=== PATIENT | male | born 2000 | race Caucasian/White ===

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

== ENCOUNTER 2019-01-23 15:07 | Emergency (ER) | payer OTHER ==
--- NOTE | 2019-01-23 16:03 | ED ---
Abdominal Pain/Male - HPI Summary HPI Summary: This patient is a 18 year old M presenting to ED with a chief complaint of intermittent LUQ pain worsening since a few days ago. The patient has had dull pain for the past several months, but it became severe and sharp a few days ago. The pain radiates into the back. Patient ate today at noon. He has previously had spleen issues. He had a benign splenic cyst drained x2 and then removed 4-5 years ago. The patient rates the pain 8/10 in severity. Symptoms aggravated by nothing. Symptoms alleviated by nothing. Patient reports nausea, blood mixed (red streaks) in stool today. Patient denies fever. PMHx of GERD, splenic cyst. PSHx of cyst spleen drainage and removal. FHx of DM, cardiac disease, HTN. Patient occasionally drinks alcohol, does not use substances or tobacco. - History of Current Complaint Chief Complaint: EDAbdPain Stated Complaint: SPLEEN PAIN PER PT Time Seen by Provider: 01/23/19 15:56 Hx Obtained From: Patient Onset/Duration: Gradual Onset - Worsening over the past few days, Lasting Weeks , Still Present, Worse Since Timing: Intermittent Severity Initially: Severe Severity Currently: Severe Pain Intensity: 8 Pain Scale Used: 0-10 Numeric Location: Discrete At: LUQ Radiates: Yes Radiates to: Back Aggravating Factor(s): Nothing Alleviating Factor(s): Nothing Associated Signs And Symptoms: Positive: Nausea. Negative: Fever - Allergies/Home Medications Allergies/Adverse Reactions: Allergies Allergy/AdvReac Type Severity Reaction Status Date / Time bees Allergy Intermediate swelling Uncoded 01/23/19 15:12 locally SEASONAL ENVIRONMENTAL Allergy Intermediate NASAL Uncoded 01/23/19 15:12 CONGESTION, EYES RED PMH/Surg Hx/FS Hx/Imm Hx Previously Healthy: No Endocrine/Hematology History: Denies: Hx Anticoagulant Therapy, Hx Diabetes, Hx Thyroid Disease Cardiovascular History: Denies: Hx Congestive Heart Failure, Hx Deep Vein Thrombosis, Hx Hypertension , Hx Myocardial Infarction, Hx Pacemaker/ICD, Other Cardiovascular Problems/ Disorders Respiratory History: Denies: Hx Asthma, Hx Chronic Obstructive Pulmonary Disease (COPD), Hx Lung Cancer, Other Respiratory Problems/Disorders GI History: Reports: Hx Gastroesophageal Reflux Disease - TUMS, Other GI Disorders - Hx of splenic cyst removed in 09/2016 Denies: Hx Gall Bladder Disease, Hx Gastrointestinal Bleed, Hx Ulcer, Hx Urosepsis History: Denies: Hx Kidney Stones, Hx Renal Disease Sensory History: Reports: Hx Contacts or Glasses - READING Denies: Hx Hearing Aid Opthamlomology History: Reports: Hx Contacts or Glasses - READING Neurological History: Denies: Hx Dementia, Hx Headaches, Hx Migraine, Hx Seizures, Hx Transient Ischemic Attacks (TIA), Other Neuro Impairments/Disorders Psychiatric History: Reports: Hx Anxiety - WHEN FEELS CONFINED Denies: Hx Depression, Hx Panic Disorder, Hx Schizophrenia, Hx Bipolar Disorder - Surgical History Surgery Procedure, Year, and Place: cyst drained in spleen 04/2016, [facility] [place]. cyst removed, 08/26 Hx Anesthesia Reactions: No Infectious Disease History: No Infectious Disease History: Denies: Hx Clostridium Difficile, Hx Hepatitis, Hx Human Immunodeficiency Virus (HIV), Hx of Known/Suspected MRSA, Hx Shingles, Hx Tuberculosis, Hx Known/ Suspected VRE, Hx Known/Suspected VRSA, History Other Infectious Disease, Traveled Outside the [place] in Last 30 Days - Family History Known Family History: Positive: Cardiac Disease, Hypertension, Diabetes Negative: Blood Disorder - Social History Alcohol Use: Occasionally Hx Substance Use: No Substance Use Type: Reports: None Hx Tobacco Use: No Smoking Status (MU): Never Smoked Tobacco Have You Smoked in the Last Year: No Review of Systems Negative: Fever Gastrointestinal: Other - Blood in stool (red streaks) Positive: Abdominal Pain - LUQ, Nausea All Other Systems Reviewed And Are Negative: Yes Physical Exam - Summary Physical Exam Summary: Appearance: The patient is well-nourished in no acute distress and in no acute pain. Skin: The skin is warm and dry and skin color reflects adequate perfusion. HEENT: The head is normocephalic and atraumatic. The pupils are equal and reactive. The conjunctivae are clear and without drainage. Nares are patent and without drainage. Mouth reveals moist mucous membranes and the throat is without erythema and exudate. The external ears are intact. The ear canals are patent and without drainage. The tympanic membranes are intact. Neck: The neck is supple with full range of motion and non-tender. There are no carotid bruits. There is no neck vein distension. Respiratory: Chest is non-tender. Lungs are clear to auscultation and breath sounds are symmetrical and equal. Cardiovascular: Heart is regular rate and rhythm. There is no murmur or rub auscultated. There is no peripheral edema and pulses are symmetrical and equal. Abdomen: LUQ tenderness Musculoskeletal: Lumbar tenderness Neurological: Patient is alert and oriented to person, place and time. The patient has symmetrical motor strength in all four extremities. Cranial nerves are grossly intact. Deep tendon reflexes are symmetrical and equal in all four extremities. Psychiatric: The patient has an appropriate affect and does not exhibit any anxiety or depression. Triage Information Reviewed: Yes Vital Signs On Initial Exam: Initial Vitals Temp Pulse Resp BP Pulse Ox 98.5 F 83 18 140/80 97 01/23/19 15:10 01/23/19 15:10 01/23/19 15:10 01/23/19 15:10 01/23/19 15:10 Vital Signs Reviewed: Yes Diagnostics - Vital Signs Vital Signs Temp Pulse Resp BP Pulse Ox 01/23/19 15:10 98.5 F 83 18 140/80 97 - Laboratory Result Diagrams: 01/23/19 16:35 01/23/19 16:35 Lab Statement: Any lab studies that have been ordered have been reviewed, and results considered in the medical decision making process. - Ultrasound Spleen Ultrasound Interpretation Completed By: Radiologist Summary of Ultrasound Findings: THE SPLEEN IS MILDLY ENLARGED. THERE HAS BEEN INTERVAL DEVELOPMENT OF AN AREA OF CALCIFICATION IN THE SPLEEN WHICH MAY PRESENT POSTSURGICAL DYSTROPHIC CALCIFICATION, BUT IS NEW WHEN COMPARED TO DECEMBER 05, 2017. RECOMMEND CONSIDERATION OF FURTHER EVALUATION WITH CONTRAST- ENHANCED CT IN THE NONACUTE SETTING. Dr. Quiles has reviewed this radiology report. Re-Evaluation - Re-Evaluation First Eval Re-Evaluation Time: 18:18 Comment: Discussed results with patient. Patient will be discharged home with dx of abdominal pain. Patient understands and agrees with this plan. Abdominal Pain Male Course/Dx - Course Course Of Treatment: Mr. Dennis presented because she's had the gradual onset of left upper quadrant pain over the last couple of weeks reminiscent of when he had splenic cysts. He was treated with surgery for the cysts. He was tender in the left upper quadrant. He was nontoxic in appearance with stable vitals. His lab work was unremarkable. Ultrasound of his spleen shows that he' s had some calcification in the area of the previous surgery. I'm not sure if this is the source of his pain. The radiologist recommended a non-urgent CT scan and I recommended he follow-up with his PCP to arrange that. I gave him a short course of tramadol for the pain and it appears is nothing immediately dangerous is occurring at this time. - Diagnoses Provider Diagnoses: Abdominal pain Discharge - Sign-Out/Discharge Documenting (check all that apply): Patient Departure - Discharge Patient Received Moderate/Deep Sedation with Procedure: No - Discharge Plan Condition: Stable Disposition: HOME Prescriptions: traMADol TAB* [Ultram*] 50 mg PO Q6HR PRN #20 tab MDD 4 PRN Reason: Pain Patient Education Materials: Abdominal Pain (ED) Referrals: Ezequiel Aden DO [Primary Care Provider] - 3 Days Additional Instructions: Follow up with your primary care provider in 2-3 days. RETURN TO THE ER FOR WORSENING OR CHANGING SYMPTOMS. - Billing Disposition and Condition Condition: STABLE Disposition: Home - Attestation Statements Document Initiated by Garfield: Yes Documenting Scribe: Dre Knight Provider For Whom Garfield is Documenting (Include Credential): Lucio Quiles MD Scribe Attestation: IDre, scribed for Lucio Quiles MD on 01/23/19 at 2042. Scribe Documentation Reviewed: Yes Provider Attestation: The documentation as recorded by the Dre mayen accurately reflects the service I personally performed and the decisions made by me, Lucio Quiles MD Status of Scribe Document: Viewed
[2019-01-23 16:45] LABS: ABS Eosinophils 0.4 10^3/ul (0-0.6); ABS Lymphocytes 2.7 10^3/ul (1.0-4.8); ABS Monocytes 0.6 10^3/ul (0-0.8); ABS Neutrophils 3.6 10^3/ul (1.5-7.7); Hematocrit 42 % (42-52); Hemoglobin 14.8 g/dL (14.0-18.0); Lymphocyte % 36.6 %; Mean Corpuscular HGB Conc 35 g/dL (31-36); Mean Corpuscular Hemoglobin 30 pg (27-31); Mean Corpuscular Volume 85 fL (80-94); Mean Platelet Volume 7.5 fL (7.4-10.4); Nucleated Red Blood Cells % 0.1; Platelet Count 230 10^3/uL (150-450); Red Blood Count 4.93 10^6 /uL (4.18-5.48); Red Cell Distribution Width 13 % (10-15); White Blood Count 7.4 10^3/uL (3.5-10.8)
[2019-01-23 16:52] LABS: INR 1.03 (0.82-1.09)
[2019-01-23 17:04] LABS: ALT 18 U/L (7-52); Albumin 4.7 g/dL (3.2-5.2); Alkaline Phosphatase 60 U/L (34-104); BUN/Creatinine Ratio 16.3 (8-20); Blood Urea Nitrogen 14 mg/dL (6-24); C Reactive Protein < 1.00 mg/L (<8.01); CO2 Carbon Dioxide 29 mmol/L (22-32); Calcium 9.9 mg/dL (8.6-10.3); Chloride 105 mmol/L (101-111); EGFR African American 138.6 (>60); EGFR Non-African American 114.6 (>60); Globulin 2.4 g/dL (2-4); Glucose 115 mg/dL (70-100); Sodium 139 mmol/L (135-145); Total Protein 7.1 g/dL (6.4-8.9)
[2019-01-23 17:26] LABS: AST 17 U/L (13-39); Anion Gap 5 mmol/L (2-11); Potassium 4.3 mmol/L (3.5-5.0)
[2019-01-23 18:22] LABS: Urine Appearance Cloudy; Urine Bilirubin Negative (Negative); Urine Blood Negative (Negative); Urine Color Yellow; Urine Glucose Negative (Negative); Urine Ketones Negative (Negative); Urine Nitrite Negative (Negative); Urine Protein Negative (Negative); Urine Specific Gravity 1.013 (1.010-1.030); Urine Urobilinogen Negative (Negative)
[2019-01-23 18:43] VITALS: BP 133/71
== END 2019-01-23 18:43 | disposition home or self-care (01) ==
LOC: ED 15:07
DX: R10.9 Unspecified abdominal pain (principal)
CPT/HCPCS: 36415; 76705; 80053; 81003; 83605; 83690; 85025; 85610; 86140; 99282

== ENCOUNTER 2019-02-20 16:19 | Emergency (ER) | payer OTHER ==
[2019-02-20 16:46] LABS: ABS Eosinophils 0.4 10^3/ul (0-0.6); ABS Lymphocytes 3.1 10^3/ul (1.0-4.8); ABS Monocytes 0.7 10^3/ul (0-0.8); ABS Neutrophils 5.9 10^3/ul (1.5-7.7); Eosinophil % 3.9 %; Hematocrit 44 % (42-52); Hemoglobin 15.4 g/dL (14.0-18.0); Lymphocyte % 30.7 %; Mean Corpuscular HGB Conc 35 g/dL (31-36); Mean Corpuscular Hemoglobin 30 pg (27-31); Mean Corpuscular Volume 87 fL (80-94); Mean Platelet Volume 7.2 fL (7.4-10.4); Platelet Count 276 10^3/uL (150-450); Red Cell Distribution Width 13 % (10-15); White Blood Count 10.1 10^3/uL (3.5-10.8)
[2019-02-20 16:51] LABS: INR 1.05 (0.82-1.09)
[2019-02-20 17:03] LABS: Albumin 5.1 g/dL (3.2-5.2); Albumin/Globulin Ratio 2.2 (1-3); BUN/Creatinine Ratio 12.1 (8-20); EGFR African American 129.9 (>60); EGFR Non-African American 107.3 (>60); Globulin 2.3 g/dL (2-4); Potassium 4.3 mmol/L (3.5-5.0); Total Bilirubin 0.5 mg/dL (0.2-1.0); Total Protein 7.4 g/dL (6.4-8.9)
--- NOTE | 2019-02-20 17:39 | ED ---
HPI Chest Pain - HPI Summary HPI Summary: A 18 y/o male presents to [facility] with a chief complaint of intermittent chest pain for the past week that worsened at 10:00 today. The patient said he was at work when he almost collapsed. At triage he rated his pain as a 7/10 in severity and was diaphoretic, SOB and nauseous. Deep breaths and moving his left arm worsens his pain. He denies any recent common colds. He has no PMHx and claims that he had a portion of his spleen removed due to a cyst. He has a FHx of cardiac disease and arthritis. He denies any smoking, drug or EtOH use. - History of Current Complaint Chief Complaint: EDChestPainROMI Time Seen by Provider: 02/20/19 17:28 Hx Obtained From: Patient Onset/Duration: Started Hours Ago, Still Present Timing: Intermittent, Lasting Hours Initial Severity: Moderate Current Severity: Severe Pain Intensity: 7 Pain Scale Used: 0-10 Numeric Chest Pain Location: Diffuse Chest Pain Radiates: No Chest Pain Radiates To:: Arm Character: Sharp/Stabbing Aggravating Factor(s): Movement - of left arm, Deep Breaths Alleviating Factor(s): Nothing Associated Signs and Symptoms: Positive: Shortness of Breath, Diaphoresis, Nausea. Negative: Fever - Allergy/Home Medications Allergies/Adverse Reactions: Allergies Allergy/AdvReac Type Severity Reaction Status Date / Time bees Allergy Intermediate swelling Uncoded 01/31/19 09:49 locally SEASONAL ENVIRONMENTAL Allergy Intermediate NASAL Uncoded 01/31/19 09:49 CONGESTION, EYES RED PMH/Surg Hx/FS Hx/Imm Hx Endocrine/Hematology History: Denies: Hx Anticoagulant Therapy, Hx Diabetes, Hx Thyroid Disease Cardiovascular History: Denies: Hx Congestive Heart Failure, Hx Deep Vein Thrombosis, Hx Hypertension , Hx Myocardial Infarction, Hx Pacemaker/ICD, Other Cardiovascular Problems/ Disorders Respiratory History: Denies: Hx Asthma, Hx Chronic Obstructive Pulmonary Disease (COPD), Hx Lung Cancer, Other Respiratory Problems/Disorders GI History: Reports: Hx Gastroesophageal Reflux Disease - TUMS, Other GI Disorders - Hx of splenic cyst removed in 09/2016 Denies: Hx Gall Bladder Disease, Hx Gastrointestinal Bleed, Hx Ulcer, Hx Urosepsis History: Denies: Hx Dialysis, Hx Kidney Stones, Hx Renal Disease Sensory History: Reports: Hx Contacts or Glasses - READING Denies: Hx Hearing Aid Opthamlomology History: Reports: Hx Contacts or Glasses - READING Neurological History: Denies: Hx Dementia, Hx Headaches, Hx Migraine, Hx Seizures, Hx Transient Ischemic Attacks (TIA), Other Neuro Impairments/Disorders Psychiatric History: Reports: Hx Anxiety - WHEN FEELS CONFINED Denies: Hx Depression, Hx Panic Disorder, Hx Schizophrenia, Hx Bipolar Disorder - Surgical History Surgery Procedure, Year, and Place: [place] [facility] [facility] [place], [place]26 Hx Anesthesia Reactions: No Infectious Disease History: No Infectious Disease History: Denies: Hx Clostridium Difficile, Hx Hepatitis, Hx Human Immunodeficiency Virus (HIV), Hx of Known/Suspected MRSA, Hx Shingles, Hx Tuberculosis, Hx Known/ Suspected VRE, Hx Known/Suspected VRSA, History Other Infectious Disease, Traveled Outside the [place] in Last 30 Days - Family History Known Family History: Positive: Cardiac Disease, Hypertension, Diabetes Negative: Blood Disorder - Social History Alcohol Use: Occasionally Hx Substance Use: No Substance Use Type: Reports: None Hx Tobacco Use: No Smoking Status (MU): Never Smoked Tobacco Have You Smoked in the Last Year: No Review of Systems Positive: Skin Diaphoresis. Negative: Fever Negative: Sore Throat Positive: Chest Pain Positive: Shortness Of Breath. Negative: Cough Positive: Nausea All Other Systems Reviewed And Are Negative: Yes Physical Exam - Summary Physical Exam Summary: VITAL SIGNS: Reviewed. GENERAL: Patient is a well-developed and nourished MALE who is lying comfortable in the stretcher. Patient is not in any acute respiratory distress. HEAD AND FACE: No signs of trauma. No ecchymosis, hematomas or skull depressions. No sinus tenderness. EYES: PERRLA, EOMI x 2, No injected conjunctiva, no nystagmus. EARS: Hearing grossly intact. Ear canals and tympanic membranes are within normal limits. MOUTH: Oropharynx within normal limits. NECK: Supple, trachea is midline, no adenopathy, no JVD, no carotid bruit, no c- spine tenderness, neck with full ROM. CHEST: Symmetric, Reproducible chest pain. LUNGS: Clear to auscultation bilaterally. No wheezing or crackles. CVS: Regular rate and rhythm, S1 and S2 present, no murmurs or gallops appreciated. ABDOMEN: Soft, non-tender. No signs of distention. No rebound, no guarding, and no masses palpated. Bowel sounds are normal. EXTREMITIES: FROM in all major joints, no edema, no cyanosis or clubbing. NEURO: Alert and oriented x 3. No acute neurological deficits. Speech is normal and follows commands. SKIN: Dry and warm. Triage Information Reviewed: Yes Vital Signs On Initial Exam: Initial Vitals Temp Pulse Resp BP Pulse Ox 97.6 F 99 20 154/84 100 02/20/19 16:23 02/20/19 16:23 02/20/19 16:23 02/20/19 16:23 02/20/19 16:23 Vital Signs Reviewed: Yes Diagnostics - Vital Signs Vital Signs Temp Pulse Resp BP Pulse Ox 02/20/19 16:23 97.6 F 99 20 154/84 100 - Laboratory Lab Results: Lab Results 02/20/19 02/20/19 02/20/19 Range/Units 16:37 16:37 16:37 WBC 10.1 (3.5-10.8) 10^3/uL RBC 5.10 (4.18-5.48) 10^6 /uL Hgb 15.4 (14.0-18.0) g/dL Hct 44 (42-52) % MCV 87 (80-94) fL MCH 30 (27-31) pg MCHC 35 (31-36) g/dL RDW 13 (10-15) % Plt Count 276 (150-450) 10^3/uL MPV 7.2 L (7.4-10.4) fL Neut % (Auto) 57.9 % Lymph % (Auto) 30.7 % Brooks % (Auto) 7.1 % Eos % (Auto) 3.9 % Baso % (Auto) 0.4 % Absolute Neuts (auto) 5.9 (1.5-7.7) 10^3/ul Absolute Lymphs (auto) 3.1 (1.0-4.8) 10^3/ul Absolute Monos (auto) 0.7 (0-0.8) 10^3/ul Absolute Eos (auto) 0.4 (0-0.6) 10^3/ul Absolute Basos (auto) 0.0 (0-0.2) 10^3/ul Absolute Nucleated RBC 0.0 10^3/ul Nucleated RBC % 0.0 INR (Anticoag Therapy) 1.05 (0.82-1.09) Sodium 139 (135-145) mmol/L Potassium 4.3 (3.5-5.0) mmol/L Chloride 104 (101-111) mmol/L Carbon Dioxide 27 (22-32) mmol/L Anion Gap 8 (2-11) mmol/L BUN 11 (6-24) mg/dL Creatinine 0.91 (0.67-1.17) mg/dL Est GFR ( Amer) 129.9 (>60) Est GFR (Non-Af Amer) 107.3 (>60) BUN/Creatinine Ratio 12.1 (8-20) Glucose 109 H (70-100) mg/dL Calcium 10.0 (8.6-10.3) mg/dL Total Bilirubin 0.50 (0.2-1.0) mg/dL AST 14 (13-39) U/L ALT 14 (7-52) U/L Alkaline Phosphatase 64 (34-104) U/L Troponin I 0.00 (<0.04) ng/mL Total Protein 7.4 (6.4-8.9) g/dL Albumin 5.1 (3.2-5.2) g/dL Globulin 2.3 (2-4) g/dL Albumin/Globulin Ratio 2.2 (1-3) Result Diagrams: 02/20/19 16:37 02/20/19 16:37 Lab Statement: Any lab studies that have been ordered have been reviewed, and results considered in the medical decision making process. - Radiology CXR Radiology Interpretation Completed By: Radiologist Summary of Radiographic Findings: NO ACTIVE CARDIOPULMONARY DISEASE. ED physician has reviewed this imaging report. - EKG 16:22 Cardiac Rate: NL - 88 bpm EKG Rhythm: Sinus Rhythm Summary of EKG Findings: NSR at [address] elevations Re-Evaluation - Re-Evaluation First Eval Re-Evaluation Time: 18:15 Change: Improved Comment: Pt is feeling better. Chest Pain Course/Dx - Course Assessment/Plan: A 18 y/o male presents to [facility] with a chief complaint of intermittent chest pain for the past week that worsened at 10:00 today. The patient said he was at work when he almost collapsed. At triage he rated his pain as a 7/10 in severity and was diaphoretic, SOB and nauseous. Deep breaths and moving his left arm worsens his pain. He denies any recent common colds. He has no PMHx and claims that he had a portion of his spleen removed due to a cyst. He has a FHx of cardiac disease and arthritis. He denies any smoking, drug or EtOH use. Blood work without any significant abnormality except for glucose of 109. Troponin 0.0. Chest x-ray shows no acute cardiopulmonary disease. EKG shows a normal sinus rhythm at [address] elevations. The patient has reproducible chest pain. Patient has no comorbidities. Therefore, I have no suspicion for an acute coronary syndrome. Patient was given Toradol for pain and the symptoms significantly improved. Patient reports that all symptoms have resolved. Because the patient has no significant comorbidities and no family history of cardiovascular disease at his age the patient will be discharged home with follow up of PCP. I discussed all the findings and test results with the patient. Patient was instructed to return to the emergency room immediately if any of the symptoms return or worsens. Patient understands and agrees. Plan of care was discussed with the patient and patient understands and agrees. All questions were answered at patient satisfaction. There were no further complaints or concerns. PE before discharge : CVS: S1 and S2 present. No murmurs appreciated. Abdominal exam before discharge: Soft, non-tender. No signs of distention. No rebound no guarding, and no masses palpated. Bowel sounds are normal. Patient is alert and oriented x 3. Patient is hemodynamically stable. - Diagnoses Provider Diagnoses: Atypical chest pain Discharge - Sign-Out/Discharge Documenting (check all that apply): Patient Departure - DC Patient Received Moderate/Deep Sedation with Procedure: No - Discharge Plan Condition: Stable Disposition: HOME Patient Education Materials: Chest Pain (DC) Referrals: Ezequiel Aden DO [Primary Care Provider] - (2-3 days) Additional Instructions: FOLLOW UP WITH YOUR PRIMARY CARE PROVIDER WITHIN 2-3 DAYS. RETURN TO THE ED FOR ANY WORSENING OR NEW SYMPTOMS. - Billing Disposition and Condition Condition: STABLE Disposition: Home - Attestation Statements Document Initiated by Scribe: Yes Documenting Scribe: Jamie Worthington Provider For Whom Rolande is Documenting (Include Credential): Alan Anthony MD Scribe Attestation: IJamie, scribed for Alan Anthony MD on 02/21/19 at 2028. Scribe Documentation Reviewed: Yes Provider Attestation: The documentation as recorded by the scribe, Jamie Worthington accurately reflects the service I personally performed and the decisions made by me, Alan Anthony MD Status of Scribe Document: Viewed
[2019-02-20] MEDS ORDERED: Ketorolac *IM* INJ* 60 MG/2 ML VIAL IM ONE (17:56)
[2019-02-20 18:32] VITALS: BP 148/74
== END 2019-02-20 18:31 | disposition home or self-care (01) ==
LOC: ED 16:19
DX: R07.89 Other chest pain (principal); R06.02 Shortness of breath; R61 Generalized hyperhidrosis; R11.0 Nausea; K21.9 Gastro-esophageal reflux disease without esophagitis; Z91.030 Bee allergy status
CPT/HCPCS: 36415; 71046; 80053; 84484; 85025; 85610; 93005; 99282